=== PATIENT | male | born 1975 | race Caucasian/White ===

== ENCOUNTER 2018-10-26 14:15 | Emergency (ER) | payer MEDICAID ==
[2018-10-26] MEDS: LIDOCAINE 1% (MPF) 5 ML VIAL INFIL (16:28)
== END 2018-10-26 18:50 | disposition home or self-care (01) ==
LOC: FTE 18:50
DX: L02.511 Cutaneous abscess of right hand (principal)
CPT/HCPCS: 10060; 99283-25

== ENCOUNTER 2018-10-29 12:20 | Emergency (ER) | payer MEDICAID | END 2018-10-29 14:24 | disposition home or self-care (01) | LOC: FTE 12:20 | DX: Z48.01 Encounter for change or removal of surgical wound dressing (principal) | CPT/HCPCS: 99281; Z7502 ==